=== PATIENT | male | born 1990 | race Two or more races ===

== ENCOUNTER 2025-05-03 04:58 | Emergency (ER) | payer BC ==
[~2025-05-03] VITALS: Ht 182.9 cm; Wt 111.1 kg
[2025-05-03 05:40] VITALS: BP 142/70; TEMP 98.5; O2SAT 99
== END 2025-05-03 05:45 | disposition home or self-care (01) ==
LOC: ER 05:05
DX: H61.21 Impacted cerumen, right ear (principal); Z60.2 Problems related to living alone